=== PATIENT | male | born 1965 | race American Indian/Alaskan Native ===

== ENCOUNTER 2017-06-03 09:17 | Outpatient (CLI) | payer OTHER ==
--- NOTE | 2017-06-03 09:54 | XRay Report ---
BILATERAL SHOULDERS, 3 VIEWS History: Pain. Findings: Normal bone mineralization. Mild osteoarthritic changes are identified at both acromioclavicular joints. There is no evidence for fracture, dislocation, ligamentous injury or bone lesion. The soft tissues are unremarkable. Impression: Mild bilateral acromioclavicular osteoarthritis.
== END 2017-06-03 09:18 | disposition home or self-care (01) ==
LOC: XRAY 09:17
PROVIDERS: ATTEND Internal Medicine
DX: M19.011 Primary osteoarthritis, right shoulder (principal); M19.012 Primary osteoarthritis, left shoulder; E11.9 Type 2 diabetes mellitus without complications; I11.0 Hypertensive heart disease with heart failure; I50.9 Heart failure, unspecified; E78.00 Pure hypercholesterolemia, unspecified

== ENCOUNTER 2017-08-26 16:51 | Emergency (ER) | payer SELFPAY ==
[2017-08-26 16:58] VITALS: BP 147/83
--- NOTE | 2017-08-26 17:17 | Emergency Department Report ---
Chief Complaint: Extremity Injury, Lower Stated Complaint: SWOLLEN FEET Time Seen by Provider: 08/26/17 17:14 - HPI History of Present Illness: Patient is a 52-year-old after Deepali Mckeon past medical history of diabetes who is presenting with lower extremity edema. Patient states his legs have been more swollen than normal last week. He has some aching pain from a tight sensation that he rates a 5 out of 10. Patient denies any chest pain shortness of breath abdominal pain nausea vomiting diarrhea problems urinating at this time Patient does state that additionally have oily bowel movement that is been present for months to years - ROS Review of Systems: Review of systems negative except those in HPI - Exam Vital Signs: Vital Signs 08/26/17 16:54 Temperature 98.5 F Pulse Rate 85 Respiratory 20 Rate Blood Pressure 147/83 O2 Sat by Pulse 100 Oximetry Physical Exam: Focused physical exam patient does have 1+ edema to the midcalf bilateral this is symmetric there is some very mild erythema and mild warmth no tenderness. Lungs are clear to auscultation abdomen is soft nontender heart tones appear normal. Eyes exam he does have a muddy sclera patient in general is alert and oriented no acute distress MSE screening note: Focused history and physical exam performed. Due to findings the following was ordered: Urinalysis has been ordered to rule out nephrotic syndrome. Patient's lungs do sound clear of edema did not believe from the patient's symptoms that he has congestive heart failure. Most likely patient has dependent edema however because of his history of diabetes nephrotic syndrome be ruled out. Regarding the oily bowel movements patient will be referred to GI for further evaluation ED Disposition for MSE Condition: Stable
[2017-08-26 18:33] LABS: Bilirubin,Urine NEG (Negative); Blood,Urine NEG (Negative); Ketones,Urine NEG (Negative); Leukocyte Esterase,Urine NEG (Negative); Mucus,Urine FEW /HPF; Nitrite,Urine NEG (Negative); Protein,Urine <15 mg/dL mg/dL (Negative); Urobilinogen,Urine < 2.0 mg/dL (<2.0); WBC,Urine < 1.0 /HPF (0.0-6.0)
== END 2017-08-26 19:00 | disposition home or self-care (01) ==
LOC: ED 16:51
DX: R60.0 Localized edema (principal)
CPT/HCPCS: 81001; 99283

== ENCOUNTER 2019-05-31 01:54 | Emergency (ER) | payer OTHER ==
[2019-05-31] MEDS ORDERED: ATIVAN ONE (01:59)
[2019-05-31] MEDS ORDERED: VITAMIN B-1 100 MG, FOLVITE 1 MG, INFUVITE 10 ML in NACL 0.9% 1000 ML 1,000 ML IV ONE (02:03)
--- NOTE | 2019-05-31 02:09 | Emergency Department Report ---
ED Alcohol HPI - General Stated Complaint: STEMI Time Seen by Provider: 05/31/19 02:03 - History of Present Illness Initial Comments: Patient is 54 years old male with history of diabetes and chronic alcoholism. Patient brought to the emergency room via EMS for evaluation of altered mental status with possible alcohol intoxication. Patient immediately informed EMS that patient was out drinking tonight. He came home with altered mental status. Patient is alert but altered. Patient is agitated and required Ativan 1 mg for sedation. MD Complaint: alcohol intoxication Last Drink: just [employer] Chronic Alcohol Use: Yes Previous Visits for Alcohol Intoxication?: Yes Treatments Prior to Arrival: none - Related Data Previous Rx's Medication Instructions Recorded Last Taken Type Furosemide [Lasix] 20 mg PO QDAY #7 tablet 08/26/17 Unknown Rx HYDROcodone/ACETAMINOPHEN [[place] 1 each PO Q4-6H #10 tablet 08/26/17 Unknown Rx 5-325 Tablet] Allergies Allergy/AdvReac Type Severity Reaction Status Date / Time No Known Allergies Allergy Verified 05/31/19 02:04 ED Review of Systems ROS: Stated complaint: STEMI Other details as noted in HPI Comment: Unobtainable due to pts medical conditions ED Past Medical Hx - Past Medical History Hx Diabetes: Yes Additional medical history: chronic back pain - Surgical History Additional Surgical History: right nephrectomy,right knee,right rotoator cuff,jaw fx - Social History Smoking Status: Current Every Day Smoker Substance Use Type: Alcohol - Medications Home Medications: Home Medications Medication Instructions Recorded Confirmed Last Taken Type Furosemide [Lasix] 20 mg PO QDAY #7 tablet 08/26/17 Unknown Rx HYDROcodone/ACETAMINOPHEN [[place] 1 each PO Q4-6H #10 tablet 08/26/17 Unknown Rx 5-325 Tablet] ED Physical Exam - General Limitations: Altered Mental Status General appearance: alert, appears intoxicated - Head Head exam: Present: atraumatic, normocephalic, normal inspection - Eye Eye exam: Present: normal appearance, PERRL - ENT ENT exam: Present: normal exam, normal orophraynx, mucous membranes moist - Neck Neck exam: Present: normal inspection, full ROM. Absent: tenderness, meningismus, lymphadenopathy, thyromegaly - Respiratory Respiratory exam: Present: normal lung sounds bilaterally - Cardiovascular Cardiovascular Exam: Present: regular rate, normal rhythm, normal heart sounds - GI/Abdominal GI/Abdominal exam: Present: soft, normal bowel sounds. Absent: distended, tenderness, guarding, rebound, rigid, organomegaly, mass, bruit, pulsatile mass, hernia - Extremities Exam Extremities exam: Present: normal inspection, full ROM, normal capillary refill. Absent: tenderness, pedal edema, joint swelling, calf tenderness - Back Exam Back exam: Present: normal inspection, full ROM. Absent: CVA tenderness (R), CVA tenderness (L), muscle spasm, paraspinal tenderness - Neurological Exam Neurological exam: Present: alert, altered, CN II-XII intact. Absent: motor sensory deficit - Skin Skin exam: Present: warm, intact, normal color ED Course Vital Signs 05/31/19 05/31/19 05/31/19 02:00 02:10 02:15 Pulse Rate 77 79 79 Respiratory 15 17 19 Rate Blood Pressure 115/70 Blood Pressure 111/76 [Left] O2 Sat by Pulse 100 99 Oximetry 05/31/19 05/31/19 05/31/19 02:18 02:30 02:45 Pulse Rate 78 72 Respiratory 17 19 13 Rate Blood Pressure 115/70 117/80 Blood Pressure [Left] O2 Sat by Pulse 99 100 100 Oximetry 05/31/19 05/31/19 05/31/19 03:00 03:15 03:30 Pulse Rate 66 67 74 Respiratory 12 12 13 Rate Blood Pressure 117/80 129/86 129/86 Blood Pressure [Left] O2 Sat by Pulse 99 Oximetry 05/31/19 05/31/19 05/31/19 03:45 04:10 04:16 Pulse Rate 69 72 Respiratory 11 L 29 H 20 Rate Blood Pressure 146/90 146/90 97/60 Blood Pressure [Left] O2 Sat by Pulse 100 100 97 Oximetry 05/31/19 05/31/19 05/31/19 04:30 04:46 05:00 Pulse Rate 72 70 68 Respiratory 12 13 13 Rate Blood Pressure 97/60 130/86 130/86 Blood Pressure [Left] O2 Sat by Pulse 98 99 100 Oximetry 05/31/19 05/31/19 05/31/19 05:16 05:30 05:46 Pulse Rate 70 69 69 Respiratory 16 14 11 L Rate Blood Pressure 97/60 138/86 138/86 Blood Pressure [Left] O2 Sat by Pulse 99 99 99 Oximetry 05/31/19 05/31/19 05/31/19 06:00 06:16 06:30 Pulse Rate 69 Respiratory 12 Rate Blood Pressure 159/91 138/86 125/90 Blood Pressure [Left] O2 Sat by Pulse 99 100 100 Oximetry 05/31/19 05/31/19 05/31/19 06:46 10:34 11:50 Pulse Rate 78 73 Respiratory 19 12 Rate Blood Pressure 125/90 Blood Pressure 121/83 136/88 [Left] O2 Sat by Pulse 100 98 98 Oximetry 05/31/19 13:00 Pulse Rate 73 Respiratory 15 Rate Blood Pressure Blood Pressure 140/95 [Left] O2 Sat by Pulse 98 Oximetry ED Medical Decision Making - Lab Data Result diagrams: 05/31/19 02:10 05/31/19 02:10 - Medical Decision Making Patient is 54 years old male with history of diabetes and chronic alcoholism. Patient brought to the emergency room via EMS for evaluation of altered mental status with possible alcohol intoxication. Patient immediately informed EMS that patient was out drinking tonight. He came home with altered mental status. Patient is alert but altered. Patient is agitated and required Ativan 1 mg for sedation. Patient remained stable in the ER. Sleeping comfortably in no acute distress. Labs reviewed and is unremarkable except for significantly elevated alcohol level of 0.49. Patient will be observed in the ER until sober. Critical care attestation.: If time is entered above; I have spent that time in minutes in the direct care of this critically ill patient, excluding procedure time. ED Disposition Clinical Impression: Alcohol intoxication, Altered mental status Disposition: DC-01 TO HOME OR SELFCARE Is pt being admited?: No Condition: Stable Instructions: Alcohol Intoxication (ED) Referrals: PRIMARY CARE, [Primary Care Provider] - 3-5 Days Forms: Accompanied Note
[2019-05-31 02:20] LABS: Hematocrit 35.9 % (35.5-45.6); Hemoglobin 12.1 gm/dl (11.8-15.2); Mean Corpuscular HGB Conc 34 % (32-34); Mean Corpuscular Volume 87 fl (84-94); Platelet Count 197 K/mm3 (140-440); Red Blood Count 4.16 M/mm3 (3.65-5.03); Red Cell Distribution Width 14.9 % (13.2-15.2)
[2019-05-31] MEDS ORDERED: ATIVAN IV ONE (02:24)
[2019-05-31 02:30] LABS: BUN/Creatinine Ratio 20; Blood Urea Nitrogen 24 mg/dL (9-20); Calcium 8.7 mg/dL (8.4-10.2); Hemolysis Index 11
[2019-05-31 02:33] LABS: INR 1.08 (0.87-1.13)
[2019-05-31 02:34] LABS: Partial Thromboplastin Time 28.6 Sec. (24.2-36.6)
[2019-05-31 02:38] LABS: Albumin 4.2 g/dL (3.9-5); Bilirubin,Direct 0.3 mg/dL (0-0.2)
--- NOTE | 2019-05-31 02:49 | XRay Report ---
CHEST 1 VIEW INDICATION / CLINICAL INFORMATION: Alcohol Intoxication. COMPARISON: None available. FINDINGS: SUPPORT DEVICES: None. HEART / MEDIASTINUM: No significant abnormality. LUNGS / PLEURA: No significant pulmonary or pleural abnormality.. No pneumothorax. ADDITIONAL FINDINGS: No significant additional findings. IMPRESSION: 1. No acute findings. Signer Name: Pedro Chiu MD Signed: 05/31/2019 2:45 AM Workstation Name: [id number]
[2019-05-31 03:06] LABS: Amphetamine Screen,Urine PRESUMPTIVE NEGATIVE; Benzodiazepines Screen,Urine PRESUMPTIVE NEGATIVE; Cannabinoid Screen,Urine PRESUMPTIVE NEGATIVE; Cocaine Screen,Urine PRESUMPTIVE NEGATIVE; Methadone Screen,Urine PRESUMPTIVE NEGATIVE; Opiate Screen,Urine PRESUMPTIVE NEGATIVE
[2019-05-31 03:19] LABS: Bacteria,Urine 1+ /HPF (Negative); Bilirubin,Urine NEG (Negative); Blood,Urine NEG (Negative); Color,Urine Yellow (Yellow); Protein,Urine <15 mg/dL mg/dL (Negative); RBC,Urine < 1.0 /HPF (0.0-6.0); Urobilinogen,Urine < 2.0 mg/dL (<2.0); WBC,Urine < 1.0 /HPF (0.0-6.0)
--- NOTE | 2019-05-31 04:50 | Cat Scan Report ---
CT HEAD WITHOUT CONTRAST INDICATION: AMS TECHNIQUE: Axial slices were obtained through the head. Coronal and sagittal reformatted images were obtained. COMPARISON: None available FINDINGS: There is no intracranial hemorrhage or extra-axial fluid collection. There is cortical atrophy. The v entricles are normal in size and position. Basal cisterns are maintained. There is no mass lesion or midline shift. No acute territorial infarct is identified. Bone windows demonstrate no acute osseous abnormality. Paranasal sinuses and mastoid air cells appear clear. There is a screw-plate device along the right zygomatic arch. TECHNIQUE: All CT scans at this facility use dose modulation, iterative reconstruction, automated ex posure control, weight based dosing, when appropriate, to reduce radiation dose to as low as reasonab ly achievable. IMPRESSION: 1. No acute intracranial abnormality. Signer Name: Pedro Chiu MD Signed: 05/31/2019 4:46 AM Workstation Name: [id number]
[2019-05-31 06:41] LABS: Anisocytosis 1+; Basophils % (Manual) 0 % (0.0-1.8); Platelet Estimate Consistent w Auto; Total Cells Counted 100
[2019-05-31 13:14] VITALS: BP 140/95
== END 2019-05-31 13:16 | disposition home or self-care (01) ==
LOC: ED 01:54
DX: R41.82 Altered mental status, unspecified (principal); F10.120 Alcohol abuse with intoxication, uncomplicated; G89.29 Other chronic pain; E11.9 Type 2 diabetes mellitus without complications; F17.200 Nicotine dependence, unspecified, uncomplicated; Z98.890 Other specified postprocedural states; Z79.899 Other long term (current) drug therapy
CPT/HCPCS: 36415; 70450; 71045; 80048; 80076; 80307; 81001; 82962; 83735; 84484; 85007; 85025; 85610; 85730; 93005; 93010; 96365; 96366; 96375; 99285; J2060; J3411; J7030; 80320; G0480